=== PATIENT | male | born 1950 | race African-American/Black ===

== ENCOUNTER → 2016-12-23 | Outpatient (CLI) | payer OTHER | LOC: COL.LAB 08:27 | DX: Z01.812 Encounter for preprocedural laboratory examination (principal); M25.862 Other specified joint disorders, left knee ==

== ENCOUNTER 2016-12-29 15:17 | Outpatient (RCR) | payer OTHER | END 2017-01-02 09:46 | disposition home or self-care (01) | LOC: MKS.ESL.PT 15:17 | DX: Z01.818 Encounter for other preprocedural examination (principal); M25.862 Other specified joint disorders, left knee ==

== ENCOUNTER 2017-02-13 15:00 | Outpatient (RCR) | payer OTHER | END 2017-03-10 10:21 | disposition home or self-care (01) | LOC: MKS.ESL.PT 15:00 | DX: Z47.89 Encounter for other orthopedic aftercare (principal); M25.562 Pain in left knee | CPT/HCPCS: G0283-GP ==

== ENCOUNTER 2017-07-10 15:31 | Outpatient (RCR) | payer OTHER | END 2017-07-11 09:18 | LOC: MKS.ESL.PT 15:31 | DX: Z01.818 Encounter for other preprocedural examination (principal) ==

== ENCOUNTER → 2017-07-12 | Outpatient (CLI) | payer OTHER | LOC: COL.LAB 10:29 | DX: Z01.812 Encounter for preprocedural laboratory examination (principal); M25.861 Other specified joint disorders, right knee ==

== ENCOUNTER 2017-08-23 10:00 | Outpatient (RCR) | payer OTHER | END 2017-08-24 11:22 | LOC: MKS.ESL.PT 10:00 | DX: Z47.1 Aftercare following joint replacement surgery (principal); Z96.651 Presence of right artificial knee joint | CPT/HCPCS: G0283-GP ==

== ENCOUNTER → 2018-04-13 | Outpatient (CLI) | payer BC | LOC: COL.RAD 13:42 | DX: M16.11 Unilateral primary osteoarthritis, right hip (principal) | CPT/HCPCS: J3301; Q9967 ==

== ENCOUNTER → 2018-12-12 | Outpatient (CLI) | payer BC | LOC: COL.RAD 09:36 | DX: M19.011 Primary osteoarthritis, right shoulder (principal); M19.012 Primary osteoarthritis, left shoulder; Z85.46 Personal history of malignant neoplasm of prostate; Z96.653 Presence of artificial knee joint, bilateral; R59.0 Localized enlarged lymph nodes | CPT/HCPCS: A9503; Q9967 ==

== ENCOUNTER 2019-11-28 09:10 | Day surgery (SDC) | payer MEDICARE, OTHER ==
[~2019-11-28] VITALS: Ht 177.8 cm; Wt 137.5 kg
[2019-11-28 09:23] VITALS: BP 107/69; PULSE 70; TEMP 98.4
[2019-11-28] MEDS ORDERED: HCTZ 25MG TAB25 MG PO (09:37)
[2019-11-28] MEDS ORDERED: ZYLOPRIM 300MG300 MG PO (09:37)
[2019-11-28] MEDS ORDERED: LIPITOR 40MG TA40 MG PO (09:38)
[2019-11-28] MEDS ORDERED: PRINIVIL40 MG PO (09:38)
[2019-11-28] MEDS ORDERED: CALCIUM CARBON650 M2 PO (09:39)
[2019-11-28 10:40] VITALS: BP 99/58; PULSE 72; TEMP 97.7
--- NOTE | 2019-11-28 10:40 | NUR ---
Patient arrives to [facility] via cart, accompanied by [facility] RN Svetlana. Bedside report received. Patient is alert and oriented. He ambulates to the chair in the room. Monitoring is applied - VSS and WNL on room air. He denies any pain or nausea. Offered and receives juice and a muffin. Dr. Tobin talks with patient and his . Call light in reach. Plan of care discussed with patient.
[2019-11-28 10:48] VITALS: TEMP 97.7
[2019-11-28 10:55] VITALS: BP 94/67; PULSE 63
--- NOTE | 2019-11-28 10:55 | NUR ---
VSS and WNL on room air. Patient denies any pain, nausea, or need. He is tolerating PO well.
[2019-11-28 11:10] VITALS: BP 110/73; PULSE 62
--- NOTE | 2019-11-28 11:10 | NUR ---
Patient has met discharge criteria. PIV removed with catheter intact and hemostasis achieved. Discharge instructions are discussed. He denies any questions and verbalizes understanding.
--- NOTE | 2019-11-28 11:20 | NUR ---
Patient is escorted to the exit via wheelchair by staff. He is discharged to home with a ride in a private vehicle at 1120.
== END 2019-11-28 11:20 | disposition home or self-care (01) ==
LOC: SDCO 09:10
DX: Z12.11 Encounter for screening for malignant neoplasm of colon (principal); D12.0 Benign neoplasm of cecum; K57.30 Diverticulosis of large intestine without perforation or abscess without bleeding; E78.5 Hyperlipidemia, unspecified; E66.01 Morbid (severe) obesity due to excess calories; M19.90 Unspecified osteoarthritis, unspecified site; G47.33 Obstructive sleep apnea (adult) (pediatric); M10.9 Gout, unspecified; I10 Essential (primary) hypertension; R73.01 Impaired fasting glucose; Z85.46 Personal history of malignant neoplasm of prostate; Z96.653 Presence of artificial knee joint, bilateral; Z79.84 Long term (current) use of oral hypoglycemic drugs; Z79.899 Other long term (current) drug therapy; Z68.41 Body mass index [BMI] 40.0-44.9, adult; Z99.89 Dependence on other enabling machines and devices
CPT/HCPCS: J2704; J7030

== ENCOUNTER 2019-12-14 22:39 | Emergency (ER) | payer MEDICARE, OTHER ==
[~2019-12-14] VITALS: Ht 177.8 cm; Wt 97.7 kg
[~2019-12-14 22:39] MED LIST: CALCIUM CARBON650 M2 PO; HCTZ 25MG TAB25 MG PO; LIPITOR 40MG TA40 MG PO; PRINIVIL40 MG PO; ZYLOPRIM 300MG300 MG PO
[2019-12-14 22:43] VITALS: TEMP 98.5
[2019-12-14 23:42] LABS: BASO % 0.4 % (0.0-2.0); EOS # 0.1 (0.0-0.7); EOS % 1.6 % (0-4.0); GRAN # 6.6 (1.4-6.5); GRAN % 76.8 % (42.2-75.2); HEMATOCRIT 37.5 % (42.0-52.0); HEMOGLOBIN 12.7 g/dl (13.5-18.0); LYMPH # 0.8 (1.2-3.4); MEAN CELL VOLUME 92 fl (80.0-100.0); MEAN CORPUSCULAR HEMOGLOBIN 31 pg (27.0-31.0); MEAN CORPUSCULAR HGB CONC 34 g/dl (33.0-37.0); MEAN PLATELET VOLUME 9.7 fl (7.4-10.4); MONO % 11.7 % (1.7-9.3); PLATELET COUNT 211 K/mm3 (130-400); RED BLOOD COUNT 4.09 M/mm3 (4.20-5.60)
[2019-12-14 23:57] LABS: ALANINE AMINOTRANSFERASE 23 U/L (21-72); ALBUMIN 4.5 gm/dL (3.5-5.0); ALKALINE PHOSPHATASE 110 U/L (50-136); ANION GAP 11 mmol/L (7-16); AST,SGOT 27 U/L (15-37); BILIRUBIN,TOTAL 0.4 mg/dL (0.0-1.0); BLOOD UREA NITROGEN 17 mg/dL (9-20); CALCIUM 9.8 mg/dL (8.4-10.2); CARBON DIOXIDE 22 mmol/L (22-30); CHLORIDE 108 mmol/L (98-107); CREATININE, serum 0.93 (0.66-1.25); GLUCOSE 133 mg/dL (74-106); POTASSIUM 3.9 mmol/L (3.4-5.0); SODIUM 141 mmol/L (137-145); TOTAL PROTEIN 7.9 gm/dL (6.4-8.2)
[2019-12-15] LABS: C-REACTIVE PROTEIN < 0.5 mg/dL (0.0-0.9)
[2019-12-15 00:28] LABS: ERYTHROCYTE SEDIMENTATION RATE 29 mm/hr (0-30)
[2019-12-15 01:42] VITALS: BP 124/77
[2019-12-15] MEDS ORDERED: LIDODERM 5% PATC1 EA TP (02:47)
[2019-12-15] MEDS ORDERED: PERCOCET 325 MG1 TA2 PO (02:47)
[2019-12-15] MEDS ORDERED: FLEXERIL 1010 MG/TAB PO (02:47)
[2019-12-15 03:07] VITALS: PULSE 73
== END 2019-12-15 03:07 | disposition home or self-care (01) ==
LOC: COL.ER 22:39
PROVIDERS: Emergency Medicine
DX: M54.2 Cervicalgia (principal); R25.2 Cramp and spasm; I10 Essential (primary) hypertension; E66.9 Obesity, unspecified; M10.9 Gout, unspecified; E78.5 Hyperlipidemia, unspecified
CPT/HCPCS: J1170; J1885; J2270; J2360

== ENCOUNTER → 2020-05-12 | Outpatient (CLI) | payer MEDICARE ==
[~2020-05-12] MED LIST changes: +FLEXERIL 1010 MG/TAB PO; +LIDODERM 5% PATC1 EA TP; +PERCOCET 325 MG1 TA2 PO
== END ==
LOC: COL.VAS 12:09
DX: I08.0 Rheumatic disorders of both mitral and aortic valves (principal); I95.9 Hypotension, unspecified

== ENCOUNTER 2024-01-23 09:00 | Outpatient (RCR) | payer MEDICARE ==
[~2024-01-23 09:00] MED LIST changes: +CEPHALEXIN500 M1 PO
== END 2024-01-28 | disposition home or self-care (01) ==
LOC: MKS.ESL.PT
DX: M25.512 Pain in left shoulder (principal)